=== PATIENT | male | born 1985 | race Caucasian/White ===

== ENCOUNTER 2016-12-10 13:20 | Emergency (ER) | payer OTHER ==
[2016-12-10 13:25] VITALS: TEMP 98.1
[2016-12-10] MEDS ORDERED: TDAP ADULT 0.5 ML INJ (BOOSTRIX) IM ONE (13:40)
[2016-12-10] MEDS ORDERED: ceFAZolin 2 GM in NS 100 ML IV ONE (13:47)
[2016-12-10] MEDS ORDERED: HYDROmorphONE/DILAUDID 1 MG/ML SYR IVP ONE (13:47)
[2016-12-10] MEDS ORDERED: CEFTRIAXONE 1 GM/DEXTROSE/50 ML BAG IV ONE (13:52)
--- NOTE | 2016-12-10 14:17 | EDPHY ---
General - History Smoking Status: Never smoked Time Seen by Provider: 12/10/16 13:24 Narrative: The patient was evaluated and managed by the physician's assistant professor of religion. My cosignature indicates that I reviewed the chart and I agree with the findings and plan of care as documented. I am the secondary supervising physician. ( Paula Dumont) CHIEF COMPLAINT: Crush injury, laceration HISTORY OF PRESENT ILLNESS: patient was working with a niall machine at the [employer] he works for when it smashed his left hand between a solid object. Sudden onset of pain and large laceration on the left thumb that extends from the dorsum over to the lateral aspect. No flexor or extensor deficits but he has significant pain. There was moderate bleeding that stopped with compression. No numbness or tingling distally to the wound he does have localized paresthesia anesthesia around the area of laceration. Pain is worse with palpation or movement. Improved at rest. Does not radiate. Uncertain when his last tetanus shot was. No other associated complaints or modifying factors. No bleeding disorders. REVIEW OF SYSTEMS: Ten systems reviewed and are negative unless otherwise noted in the HPI EXAMINATION General Appearance: Alert, no distress Cardiovascular: Regular rate. Pulses are intact distally. Symmetric radial and DP pulses are 2+. Brisk cap refill in all 10 fingers. Neurological: A&O, nonfocal, Strength is symmetric in all limbs. Strength is 5/5 in both hands. There is good strength in the interossei. No wrist drop. Skin: Warm and dry, no rash . Extensive laceration of the left hand extending from the dorsomedial aspect of the thumb laterally. This is curvilinear an approximately 5 cm in length. Extensive down exposing the extensor apparatus but not including the tendon sheath. Extremities: Moderate tenderness to palpation edema of the left hand over the base of the thumb and the dorsum of the hand. Range of motion is fully intact with good extension, flexion, opposition, abduction. No wrist drop. Interossei are strong and symmetric to the right. Neurovascular intact distal to the injury. There is localized anesthesia around the laceration DIFFERENTIAL DIAGNOSES: Including but not limited to laceration, fracture, fracture dislocation, crush injury MDM: 2:00 p.m. crush injury to left hand that resulted in a large laceration to the hand. No evidence of compartment syndrome as all compartments are soft. He has excellent extension flexion of the hand and fingers. normal cap refill in all 10 fingers. X-ray shows no fracture but there is a possible foreign body. I have anesthetized the wound copiously explored and found no foreign body. We will irrigate the wound I will proceed with closure. 3:10 p.m. extensive laceration to the left thumb without foreign body noted on my examination. No fracture on the x-ray. He has been provided tetanus update as well as Ancef 2 g IV here. He is neurovascular intact pre and postprocedure. Excellent extension, flexion, opposition, abduction and abduction of the thumb. Wound was dressed with splint and bulky dressing. Return here in 7-10 days for suture removal. Follow up with hand surgeon for definitive care given the proximity to the tendon structures. PROCEDURE: Laceration repair Consent: Verbal Location: Left hand, dorsum extending laterally over the thumb base Length of repair: 5 cm Complexity: complex, 2 layer Layer involvement: 2 layer Anesthesia: local, 10 mL of 1% lidocaine plain with 0.25% Marcaine plain Irrigation: Extensive Debridement: minimal Procedure description: after good anesthesia the wound was explored. There is no foreign body present. The extensor tendons are exposed over the thumb but not compromised. No evidence of injury to the tendon sheath. The wound was copiously irrigated. Wound was then closed with 5-0 Ethilon sutures. Suture/Staple material: Subcutaneous: 5-0 Ethilon, 15 simple interrupted sutures Wound care: Routine as discussed Suture/Staple removal: 7-10 Days SUPERVISION: This patient was independently evaluated without the aide of supervising physician. (Gerhard Sampson) - Objective Vital Signs: Initial Vital Signs Temperature (C) 98.1 F 12/10/16 13:21 Heart Rate 71 12/10/16 13:21 Respiratory Rate 17 12/10/16 13:21 Blood Pressure 136/79 H 12/10/16 13:21 O2 Sat (%) 97 12/10/16 13:21 O2 Delivery Mode Room Air Allergies/Adverse Reactions: No Known Allergies Allergy (Unverified 12/10/16 13:21) Home Medications: Medication Instructions Recorded Cephalexin [Keflex (*)] 500 mg PO TID #30 cap 12/10/16 oxyCODONE HCL/ACETAMINOPHEN 1 each PO Q4-6PRN PRN #15 tablet 12/10/16 [Percocet 5-325 mg Tablet] Medications Given: Discontinued Medications Diphtheria/Tetanus/Acell Pertussis (Boostrix) 0.5 ml IM .ONCE ONE Stop: 12/10/16 13:41 Last Admin: 12/10/16 13:46 Dose: 0.5 ml Hydromorphone HCl (Dilaudid) 1 mg IVP EDNOW ONE Stop: 12/10/16 13:48 Last Admin: 12/10/16 13:59 Dose: 1 mg Cefazolin Sodium/Dextrose (Ancef 2 Gm (Premix)) 100 mls @ 200 mls/hr IV EDNOW ONE PRN Reason: Protocol Stop: 12/10/16 14:59 Last Admin: 12/10/16 14:23 Dose: 100 mls Departure - Departure Disposition: Home, Routine, Self-Care Clinical Impression: Crush injury of hand Qualifiers: Encounter type: initial encounter Laterality: left Qualified Code(s): S67.22XA - Crushing injury of left hand, initial encounter Hand laceration Qualifiers: Encounter type: initial encounter Laterality: left Qualified Code(s): S61.412A - Laceration without foreign body of left hand, initial encounter Condition: Good Instructions: Laceration (ED), Care For Your Stitches (ED) Additional Instructions: Apply ice and elevate the wound. Ibuprofen every 8 hours as needed. pain medication as needed. Keflex 3 times daily for 10 days. Return here for signs or symptoms of infection as discussed. Follow up with hand surgeon for definitive care Referrals: NONE *PRIMARY CARE P,. [Primary Care Provider] - As per Instructions Jaspreet Pearl MD [Medical Doctor] - As per Instructions Prescriptions: Cephalexin [Keflex (*)] 500 mg PO TID #30 cap oxyCODONE HCL/ACETAMINOPHEN [Percocet 5-325 mg Tablet] 1 each PO Q4-6PRN PRN # 15 tablet PRN Reason: Pain, Breakthrough
[2016-12-10] MEDS ORDERED: ceFAZolin 2 GM/DEXTROSE 100 ML IV ONE (14:30)
[2016-12-10 15:21] VITALS: BP 130/70; PULSE 80; RESP 14; O2SAT 96
== END 2016-12-10 15:20 | disposition home or self-care (01) ==
PROC: 0HQGXZZ Repair Left Hand Skin, External Approach (ICD-10-PCS; principal; 2016-12-10)
DX: S61.412A Laceration without foreign body of left hand, initial encounter (principal); S67.22XA Crushing injury of left hand, initial encounter; Z23 Encounter for immunization; W23.0XXA Caught, crushed, jammed, or pinched between moving objects, initial encounter; Y92.69 Other specified industrial and construction area as the place of occurrence of the external cause; Y99.8 Other external cause status; Y93.89 Activity, other specified
CPT/HCPCS: 96365; J0690; J0696; J1170